=== PATIENT | female | born 1940 | race Caucasian/White ===

== ENCOUNTER 2018-08-11 19:02 | Emergency (ER) | payer OTHER ==
[~2018-08-11] VITALS: Wt 51.5 kg
[2018-08-11] MEDS ORDERED: ONDANSETRON 4 MG INJ IV STA (19:55)
[2018-08-11] MEDS ORDERED: morphine 4 MG/ML VIAL IV STA (19:55)
[2018-08-11] MEDS ORDERED: SOD CHLORIDE 0.9% 500 ML IV STA (19:55)
[2018-08-11] MEDS ORDERED: CLOP75TA19 PO (20:16)
[2018-08-11] MEDS ORDERED: BENA40TA56 PO (20:17)
[2018-08-11] MEDS ORDERED: ATOR40TA68 PO (20:17)
[2018-08-11] MEDS ORDERED: METO-429 PO (20:18)
[2018-08-11] MEDS ORDERED: LINA5TAB PO (20:19)
[2018-08-11] MEDS ORDERED: METF500T24 PO (20:19)
--- NOTE | 2018-08-11 20:36 | ERD ---
ER Documentation Chief Complaint Chief Complaint MATHEWS, JAW PAIN, ELEVATED BP; HX OF RECENT CVA HPI During the patient's encounter translation services were utilized Language: [Cook Islander] Source: [in person] 78-year-old female who presents to the emergency room with multiple complaints. She has a fairly recent history of stroke. Over the past 24 hours she has noted her blood pressure has been elevated. She describes left temporal headache that is gradual onset and mild and now completely alleviated. She did note some right-sided jaw pain with eating earlier today. No vision changes or vision loss. Patient denies any chest pain or chest pressure. She does describe an episode of lightheadedness and dizziness but no true vertigo. No paresthesias, no focal motor deficit. ROS All systems reviewed and are negative except as per history of present illness. Medications Home Meds Reported Medications Metformin Hcl* (Metformin Hcl*) 500 Mg Tablet, 500 MG PO WITH BREAKFAST DINNE, #60 TAB 08/11/18 Linagliptin (TRADJENTA) 5 Mg Tablet, 5 MG PO DAILY, TAB 08/11/18 Metoprolol Tartrate* (Lopressor*) 50 Mg Tab, 50 MG PO BID, #60 TAB HOLD IF SBP<110 OR HR<60 08/11/18 Atorvastatin* (Atorvastatin*) 40 Mg Tablet, 40 MG PO QHS, #30 TAB 08/11/18 Benazepril Hcl* (Benazepril Hcl*) 40 Mg Tablet, 40 MG PO DAILY, #30 TAB HOLD IF SBP<110 08/11/18 Clopidogrel Bisulfate* (Clopidogrel Bisulfate*) 75 Mg Tablet, 75 MG PO DAILY, #30 TAB 08/11/18 Allergies Allergies: Coded Allergies: No Known Allergy (Unverified , 08/11/18) PMhx/Soc History of Surgery: Yes (heart) Anesthesia Reaction: No Hx Neurological Disorder: No Hx Respiratory Disorders: No Hx Cardiac Disorders: Yes (htn, hld) Hx Psychiatric Problems: No Hx Miscellaneous Medical Probl: Yes (DM) Hx Alcohol Use: No Hx Substance Use: No Hx Tobacco Use: No Smoking Status: Never smoker FmHx Family History: No diabetes Physical Exam Vitals Vital Signs Date Temp Pulse Resp B/P (MAP) Pulse Ox O2 O2 Flow FiO2 Time Delivery Rate 08/11/18 62 21 168/75 97 Room Air 21:32 (106) 08/11/18 97.8 70 18 194/88 98 19:11 (123) Physical Exam General: Well developed, well nourished, no acute distress Head: Normocephalic, atraumatic. No tenderness noted to the left temporal artery Eyes: Pupils equally reactive, EOM intact ENT: Moist mucous membranes, normal jaw opening and closing Neck: Supple, no lymphadenopathy Respiratory: Lungs clear bilaterally, no distress Cardiovascular: RRR, no murmurs, rubs, or gallops Abdominal: Soft, non-tender, non-distended, no peritoneal signs : Deferred MSK: No edema, no unilateral swelling, 5/5 strength Neurologic: Alert and oriented, moving all extremities, normal speech, no focal weakness, no cerebellar signs Skin: No rash Psych: Normal mood Result Diagram: 08/11/18200308/11/182003 Results 24 hrs Laboratory Tests Test 08/11/18 20:04 White Blood Count 8.8 10^3/ul Red Blood Count 5.11 10^6/ul Hemoglobin 14.2 g/dl Hematocrit 42.5 % Mean Corpuscular Volume 83.2 fl Mean Corpuscular Hemoglobin 27.8 pg Mean Corpuscular Hemoglobin Concent 33.4 g/dl Red Cell Distribution Width 12.9 % Platelet Count 239 10^3/UL Mean Platelet Volume 9.5 fl Immature Granulocytes % 0.200 % Neutrophils % % Segmented Neutrophils % (Manual) 53 % Band Neutrophils % (Manual) 2 % Lymphocytes % % Lymphocytes % (Manual) 13 % Monocytes % % Monocytes % (Manual) 7 % Eosinophils % % Eosinophils % (Manual) 25 % Basophils % % Nucleated Red Blood Cells % 0.0 /100WBC Immature Granulocytes # 0.020 10^3/ul Neutrophils # 10^3/ul Neutrophils # (Manual) 4.7 10^3/ul Band Neutrophils # 0.1 10^3/ul Lymphocytes (Manual) 1.1 10^3/ul Lymphocytes # 10^3/ul Monocytes # 10^3/ul Monocytes # (Manual) 0.6 10^3/ul Eosinophils # 10^3/ul Basophils # 10^3/ul Nucleated Red Blood Cells # 10^3/ul Platelet Estimate NORMAL Giant Platelets 1 % Anisocytosis 1+ Microcytosis 1+ Erythrocyte Sedimentation Rate 10 mm/Hr Prothrombin Time 12.8 Sec Prothrombin Time Ratio 1.0 INR International Normalized Ratio 0.95 Activated Partial Thromboplast Time 31.8 Sec Sodium Level 138 mmol/L Potassium Level 4.2 mmol/L Chloride Level 103 mmol/L Carbon Dioxide Level 25 mmol/L Anion Gap 10 Blood Urea Nitrogen 14 mg/dl Creatinine 0.66 mg/dl Est Glomerular Filtrat Rate mL/min mL/min Glucose Level 110 mg/dl Calcium Level 9.4 mg/dl Troponin I < 0.012 ng/ml C-Reactive Protein < 0.5 mg/dl Current Medications Medications Dose Sig/Morelia Start Time Status Last (Trade) Ordered Route PRN Stop Time Admin Dose Reason Admin Sodium 500 ml @ Q1H STAT 08/11/18 DC 08/11/18 Chloride 500 mls/hr IV 19:55 20:11 08/11/18 20:54 Ondansetron 4 mg ONCE STAT 08/11/18 DC 08/11/18 HCl (Zofran IV 19:55 20:11 Inj) 08/11/18 19:57 Morphine 2 mg ONCE STAT 08/11/18 DC 08/11/18 Sulfate IV 19:55 20:13 (morphine) 08/11/18 19:57 Procedures/MDM EKG, MONITORS, & DIAGNOSTIC IMAGING: CT brain: No intracranial hemorrhage, mass or evidence of acute transcortical infarct. Atrophy. White matter disease compatible with chronic small vessel ischemia. Chronic left frontal lobe infarct with encephalomalacia. EKG: I reviewed and interpreted a 12-lead EKG. Rhythm: Normal sinus rhythm ST Changes: No contiguous ST segment elevations T waves: No contiguous T wave inversions Impression: No evidence of acute cardiac ischemia LAB INTERPRETATION: * No evidence of acute infection. * Normal ESR and CRP * Negative troponin MEDICAL DECISION MAKING: The patient presents to the emergency room complaining of left-sided headache, mild jaw pain in the setting of hypertension. This could potentially be secondary to hypertensive urgency versus emergency. The patient does describe temporal pain and jaw pain with eating raising the concern for possible giant cell arteritis though extremely unlikely. ESR and CRP would be reasonable. Patient will benefit from CT of the brain to rule out intracranial hemorrhage. I do not believe the jaw pain is necessarily related to acute coronary syndrome or cardiac ischemia though EKG and troponin would be appropriate. Symptoms are almost completely resolved at this point. ER COURSE: * The patient's laboratory testing and diagnostic imaging are extremely reassuring. I have a low pretest probability for giant cell arteritis and with the patient's normal ESR and CRP this is extremely unlikely. No indication for further testing. * The patient's headache improved. Blood pressure improved. * At this point there is no evidence of endorgan dysfunction. The patient can be safely discharged with close primary care follow-up. CONSULTATION: None DISPOSITION PLAN: The patient does not have an identifiable emergent medical condition that warrants inpatient hospitalization at this time. The patient is deemed safe for discharge with outpatient follow-up. We discussed follow up with the patient's primary care doctor within 24 to 48 hours as needed. We also discussed return to the emergency room for worsening symptoms or worsening condition. Outpatient referral: None required Discharge Medications: None required Departure Diagnosis: Primary Impression: Hypertensive urgency Additional Impression: Headache Headache type: unspecified Headache chronicity pattern: acute headache Intractability: not intractable Qualified Codes: R51 - Headache Condition: Stable JACIEL NOONAN MD Aug 11, 2018 20:36
[2018-08-11 21:57] VITALS: BP 168/75; PULSE 59; RESP 20
== END 2018-08-11 22:16 | disposition home or self-care (01) ==
LOC: E/R 19:02
DX: I16.0 Hypertensive urgency (principal); E11.9 Type 2 diabetes mellitus without complications; I10 Essential (primary) hypertension; Z79.01 Long term (current) use of anticoagulants; Z79.84 Long term (current) use of oral hypoglycemic drugs
CPT/HCPCS: 36415; 70450; 80048; 84484; 85025; 85610; 85651; 85730; 86140; 93005; 96361; 96374; 96375; 99285; J2270; J2405; J7040